=== PATIENT | male | born 1945 | race Caucasian/White ===

== ENCOUNTER 2018-03-03 09:57 | Day surgery (SDC) | payer BC ==
[2018-03-03] MEDS ORDERED: PROPOFOL 10 MG/ML VIAL IV ONE (09:58)
[2018-03-03] MEDS ORDERED: LIDOCAINE 2% MDV (20MG/ML) 20ML VIAL IV ONE (09:58)
--- NOTE | 2018-03-04 08:41 | Operative Note ---
DATE OF SURGERY: OPERATION: COLONOSCOPY with cold forceps polypectomy. PREOPERATIVE DIAGNOSIS: Personal history of large adenomatous polyp. POSTOPERATIVE DIAGNOSIS: Ascending colon polyp. PREPARATION QUALITY: Good. ESTIMATED BLOOD LOSS: Minimum. SPECIMENS: Ascending colon polyp. COMPLICATIONS: None apparent. PROCEDURE: After informed consent was obtained from the patient, he was placed in the left lateral decubitus position in the endoscopy suite, sedated and monitored by the department of anesthesia. Digital rectal examination was unremarkable. A well-lubricated [id number] colonoscope was inserted into the rectum and advanced to the cecum. The cecum and cecal bulb were unremarkable. The preparation quality was good. The ascending colon revealed a diminutive polyp removed in piecemeal fashion with a cold forceps. The remainder of the ascending colon, transverse colon, descending colon, sigmoid colon, and rectum were unremarkable. J-turn views of the anorectum were unrevealing. The endoscope was straightened, the rectal ampulla deflated, and the endoscope was removed. RECOMMENDATIONS: The patient should resume his medications and diet. I suspect he will require repeat exam in 5 years with a final determination based on tissue histology. As always, thank you for allowing me to participate in the healthcare of your patients. CC: PERI MARTIN D.O. BERE
== END 2018-03-03 11:00 | disposition home or self-care (01) ==
LOC: HOP 09:57
PROVIDERS: ATTEND Internal Medicine Gastroenterology
DX: Z12.11 Encounter for screening for malignant neoplasm of colon (principal); Z86.010 Personal history of colon polyps; D12.2 Benign neoplasm of ascending colon; E78.00 Pure hypercholesterolemia, unspecified